=== PATIENT | male | born 1975 | race Caucasian/White ===

== ENCOUNTER 2019-02-20 06:04 | Inpatient (IN) | payer OTHER, SELFPAY ==
[2019-02-17 10:34] VITALS: BMI 30.7
[2019-02-20] VITALS (18 sets, daily range): BP systolic 101–136; BP diastolic 56–113; PULSE 71–102; RESP 1–18; TEMP 36.3–36.9; O2SAT 87–100; BMI 30.7
--- NOTE | 2019-02-20 | DI.RAD.S_ITS ---
PROCEDURE: XR LUMBAR SPINE 2-3V INDICATIONS: L4-5, L5-S1 TLIF TECHNIQUE: 2 intraoperative fluoroscopic views of the lumbar spine were acquired. COMPARISON: None. FINDINGS: Intraoperative fluoroscopic images of lower lumbar spine shows transpedicular fusion at L4-5 and L5-S1 levels with intervertebral spacer placement at these levels. IMPRESSION: Fluoroscopy guidance was provided intraoperatively for transpedicular fusion at L4-S1 levels. Dictated by: Dhruv Gallegos M.D. on 02/20/2019 at 13:46 Approved by: Dhruv Gallegos M.D. on 02/20/2019 at 13:46
--- NOTE | 2019-02-20 06:48 | SUR.PREOP ---
+pp x2, danielito feet cold, pale pink. Pt denied tingling or numbness to danielito feet
[2019-02-20] MEDS: LACTATED RINGERS 1,000 ML 42 ML IV ×2 (06:59→09:45)
--- NOTE | 2019-02-20 07:27 | PC.NURSE ---
Day shift: Pt is not on AC unit at this time.
--- NOTE | 2019-02-20 07:41 | PM.PREOP ---
Pre-operative Note Interval Note History & Physical reviewed/Exam performed by Physician: Yes Changes to H&P: No
[2019-02-20] MEDS: CEFAZOLIN 2 GM/100 ML FROZ.PIGGY IV ×3 (07:45→23:55)
--- NOTE | 2019-02-20 08:27 | SUR.OPER ---
Prone on spine table, head in foam head support, padded chest and pelvic supports, gel pad at knees, lower legs supported by pillows; nipples, genitalia and toes free of pressure, arms secured on foam padded arm boards at <90 degrees abduction. Tape over blanket at thigh secured to table.
[2019-02-20] MEDS: BUPIVACAINE LIPOSOME 266 MG/20 ML VIAL INJ (08:34)
[2019-02-20] MEDS: BUPIVACAINE 0.25% W/ EPI 30 ML VIAL INJ (08:35)
--- NOTE | 2019-02-20 11:31 | CM.DANOTE ---
Discharge Planning/Care Management DCP: assessment: initiated: Case received and discussed in Team Rounds. Pt is currently in surgery. EMR reviewed. Documentation reveals that pt is a 43 year old male who admitted early this morning for a planned spinal surgery. Surgeon: Dr. Herr. Admission status: in review currently: per JUSTEN [place] Payer: Active [facility]. PT and OT will be ordered. White Board in pt's room 227 is updated with DCP team contact information. P: DCP team to follow up tomorrow with pt to continue the DCP assessment process. CM Discharge Assessment Start: 02/20/19 11:29 Freq: Status: Active Protocol: Document 02/20/19 11:30 ITV (Rec: 02/20/19 11:31 ITV [id number]) Discharge Planning Assessment Advance Directives? No History Provided By Medical Record Prior Living Arrangements Mobile home Household Members spouse family children Whiteboard Updated in Patient Room with Yes name and ext. # of Rum Processing Operator Review Status In Process Pre-Anesthesia Assessment Start: 02/17/19 09:58 Freq: Status: Active Protocol: Document 02/17/19 10:34 CAB (Rec: 02/17/19 10:59 CAB [id number]) Pre-Anesthesia Assessment Patient Also Known As Cuellar (AKA) Patient Information Reviewed Via Phone Assessment Assessment Completed With Patient Primary Care Provider Dr. Veloz Seen Specialist in Last 12 Months Yes Specialist Seen Orthopedist Primary Language French Research Chemist Required No Height 175.26 cm Weight 94.347 kg Body Mass Index (BMI) 30.7 Hearing Ability Normal Visual Impairment No Limitations Visual Assist None Dentition Type Teeth, Natural Present Barriers to Learning None Other Aids No Hx Anesthesia Reactions No Hx Family Anesthesia Reaction No Hx Malignant Hyperthermia No Hx Blood Transfusions No Anesthesia Review Requested No Mangle Tender Cloth No alcohol intake current alcohol intake frequency 0-2 drinks per day Smoking Status Never smoker Substance Use Type does not use Pain Present Pain Reported Musculoskeletal Symptoms Abnormal Gait Back Pain Difficulty Walking Joint Pain Muscle Weakness Radiating Pain into Limb History of Falling (Recent or History of Yes ) Patient is completely paralyzed or No completely immobile Mental Status Oriented to own ability Is patient on oxygen? No Does patient have MIKE/SOB No Hx Sleep Apnea No Currently Taking a Beta Nadeem No Can You Climb a Flight of Stairs Without Yes SOB Hx Chest Pain No Hx SOB No Hx Syncope or Dizziness No Anti-Coagulant Therapy No Has a Yarn Winder No Cardiac Testing No Hx Pacemaker/ICD No Pacemaker Rep Required? No Cardiac Clearance Received Not Applicable Diet Type At Home Regular dysphagia No Genitourinary Symptoms Difficulty Urinating Bladder Pattern Urgency Urinary Catheter Present No Hx Urinary Self Catheterization No Comment Pt feels r/t fall down into a boat bilge 7-10 feet 10/12/18 Diabetes No Hx Drug Resistant Organism No Presence of External or Internal Medical No Devices Have you traveled outside the [facility] in the last 30 days? Marital Status Lives With spouse family children Prior Living Arrangements Mobile home Number of Floors (Floors) One Floor Support System Family Spouse Does the Patient Have Assistance After Yes Surgery Patient Discharge Plan Description Return Home Comment Pt advised 2-3 day length of stay per surgeon's office Feels Safe in Current Environment Yes Been Physically Hurt or Threatened By a No Person in Current Environment Do you have thoughts of harming yourself None or others? Are you currently considering suicide? No Do you have a plan to hurt yourself or No Plan others? Do You Have Any Spiritual Beliefs That No May Affect Your HC Choices? Do You Have Any Cultural Practices That No May Affect Your HC Choices? Spiritual Referral None Comment Jew Who Can We Speak to About Patient's Care Family, friends Identifying Code for Release of Patient Declines to issue Information Health Care Proxy/Next of Kin Kimmy () Health Care Proxy Emergency Contact Name Kimmy () Emergency Contact Advance Directives? No: Declines further information Power of Director Of Business Continuity No PAC Instructions Durable medical equipment Medications to take/avoid Nasal antibiotic No ETOH/petroleum product on skin DOS NPO Pre-surgical wash Sturdy shoes/comfortable clothes Do not bring valuables and remove jewelry
--- NOTE | 2019-02-20 11:53 | P.OP_ITS ---
Operative Date/Time/Diagnoses Date of procedure: 02/20/19 Time of procedure: 07:49 Pre-op diagnosis: 1. L4-5, L5-S1 spondylolisthesis 2. L5-S1 spondylolysis 3. L4-5, L5-S1 spinal stenosis Post-op diagnosis: same Procedure & Clinicians Procedure: 1. L4-5, L5-S1 Postero-lateral and posterior interbody fusion 2. L4-5, L5-S1 interbody cage placement. 3. L4-5, L5-S1 decompressive laminectomy with bilateral facetecomies 4. L4-5, L5-S1 Posterior segmental instrumentation 5. [place] of bone marrow from iliac crest 6. Utilization of microsurgical technique and operating microscope Same procedure as scheduled: Yes Indications: Patient has been having chronic back pain and worsening lumbar radiculopathy. Patient sustained a work injury and did not improve after multiple conservative management with worsening pain weakness and numbness in her lower extremity. Patient has been having difficulty performing activity of daily living. After d iscussing risks benefits of treatment options, patient elected proceed with surgery. Surgeon: Joe Herr Intelligence Clerk: Yoli Cano Click Yes if Unassisted: No Anesthesia Type: General Operative Notes Closure Type: primary Specimen(s): none sent Prosthetic devices, grafts, tissues, transplants, or devices: Globus revolve screws, Rise cages Applied: catheter Estimated Blood Loss (mL): 100 Blood products transfused: none Procedure in detail: Patient was seen in the preoperative area. Risks and benefits of the surgery was discussed with the patient. Informed consent was obtained from the patient and placed in the chart. Surgical site was marked. Patient was taken to the operative room. General anesthesia was administered. Prophylactic antibiotic was given to the patient less than 30 min before the incision was made. Patient was placed into a prone position on the Freddie table. Patient's back was then prepped and draped in the sterile fashion. Time- out was performed at this time. Using AP and lateral C-arm imaging the interval between L4-S1 was identified and marked on patient's back. A 2 inch incision 2 in from midline was made on the left side first. The fascia was incised in line with skin incision. Globus MARS retractors was placed inside the incision and docked onto the L4 and L5 lamina. Using microsurgical technique and operating microscope, a L4 and L5 laminectomy and L4-5 L5-S1 facetectomy was performed using a Kerrison rongeur. During the process of decompression more than 75% of bilateral L4-5 L5-S1 facets were removed in order to decompress the spinal canal and the lateral recess. The L4- 5 L5-S1 level was grossly unstable after the decompression was completed and requiring the fusion procedure. The disc space at L4-5, L5-S1 was identified. And a total diskectomy was performed at L4-5, L5-S1 level. The endplates were decorticated using a rasp and shaver. The total diskectomy and decortication was performed at L4-5, L5-S1 level in order to to accomplish a L4-5, L5-S1 fusion. The local bone from the laminectomy and facetectomy was saved for local bone grafting. After the total diskectomy and decortication was completed, Bio4 bone graft material was combined with local bone that was harvested earlier. At this time, a separate skin is incision was made over the iliac crest. A Jamshidi needle was inserted into the iliac crest through a separate skin incision. 5 cc of bone marrow aspiration was obtained through the separate skin incision using a Jamshidi needle from the iliac crest. The bone marrow aspiration was combined with local bone and the Bio4 bone grafting material. The bone grafting material was placed into the L4-5, L5-S1 interbody space along with two cages, one expandable cage at each level. The cages were expanded to their maximum height using the torque limiting screwdriver. At this time a mirror image incision was made on the right side. The fascia was incised in line with the skin incision. Globus MARS retractor was inserted and docked onto the L4-5, L5-S1 posterolateral gutter. Using the power drill, posterior-lateral decortication was performed at L4-5, L5-S1 level until bleeding cortical bone was identified. The remaining bone grafting material was placed into the L4-5 L5-S1 posterior lateral gutter he order to accomplish posterolateral fusion at the L4-5 L5-S1 levels. Using the double C-arm technique, pedicle screws were placed into the L4, L5, S1 pedicles bilaterally. This was done by placing the Jamshidi needle into the pedicles, then placing the guidewires over the Jamshidi needle, and finally placing the cannulated screws over the guidewires bilaterally. After the pedicle screws were placed, 2 titanium rods was locked into the heads of the pedicle screws using locking caps and torque limiting screwdriver. Total 6 pedicles screws were placed. After all the hardware was placed, and confirmed with AP and lateral C-arm imaging, the wound was then irrigated with sterile normal saline and packed with Ray-Jean gauze for 3 min to accomplish hemostasis. After the gauze was removed the deep fascia was closed with #1 Vicryl suture. The subcutaneous layer was closed with 2-0 Vicryl. The skin was closed with skin flory. Patient tolerated the procedure well. There were no complications. Complications: none Condition: stable Disposition: PACU Plan for aftercare: Admit to inpatient hospital
--- NOTE | 2019-02-20 13:30 | PC.NURSE ---
Day shift: Pt on unit at approx 1315. VS WNL. 4L NC high 90's. HR 100. BP 134/83. Pt very tired. Denies any pain. CMS ok. Dressing is CDI. SCD's iun place. PPP. Spouse in room for support. Bed alarm on. Garcia cath patent and draining to gravity clear yellow.
[2019-02-20] MEDS: SODIUM CHLORIDE 0.9% 1,000 ML 100 ML IV (14:20)
[2019-02-20] MEDS: hydrOXYzine pamoate 25 MG CAPSULE PO ×2 (14:21→19:40)
[2019-02-20] MEDS: GABAPENTIN 300 MG CAPSULE PO ×2 (15:59→20:41)
--- NOTE | 2019-02-20 16:02 | PT.IIE ---
Current Diagnoses Spondylolysis, lumbar region (02/20/19) Spondylolisthesis, lumbar region (02/20/19) Spinal stenosis, lumbar region without neurogenic claudication (02/20/19) Surgery Performed Operation Date: 02/20/19 07:45 Actual Procedures p l4-5, l5-s1 tlif with posterior instrumentation - Joe Herr MD Surgical History (Last Updated 02/17/19 @ 10:44 by Beulah uK, RN) H/O: vasectomy (Acute ~2009) Hx of arthroscopy of left knee (Acute ~1998) Hx of tonsillectomy (Acute) S/P emergency tracheotomy for assistance in breathing (Acute ~1976) Medical History (Last Updated 02/17/19 @ 10:44 by Beulah Ku RN) Anxiety about health (Acute) Arthritis (Acute) Depression (Acute) Hemorrhoid (Acute) Sciatic leg pain (Acute) Physical Therapy Inpatient Evaluation/Re-Eval M1 PT/OT-IP Prior Functional Status Start: 02/20/19 17:29 Freq: NEEDED Status: Active Protocol: Document 02/20/19 16:02 AB (Rec: 02/20/19 17:43 AB [id number]) Medical Review Prior Functional Status Medical History Reviewed Yes Communication able to make needs known Mobility and Gait pt stated that he is independent with all mobilities and ambulation without AD Social History Household Members spouse family children Number of Floors (Floors) One Floor Number of Stairs To Enter/Railing? 3 steps to enter with bilateral rails Home Environment Standard Height Toilet Walk in Shower Built-In Shower Seat Home Equipment Front Wheel Walker Additional Social History Comment pt lives with spouse, mother- in-law and her daughter. pt stated that he has trekking /hiking poles that he uses sometimes. M2 PT-IP Current Condition Start: 02/20/19 17:29 Freq: NEEDED Status: Active Protocol: Document 02/20/19 16:02 AB (Rec: 02/20/19 17:43 AB [id number]) Physical Therapy Current Condition Current Condition Evaluation Date 02/20/19 Treatment Diagnosis L4-S1 fusion/lami; difficulty in walking Onset Date 02/20/19 Precautions Lumbar Precautions Log Roll No Twisting Limit Bending Lifting Restriction of 10 lbs Gait Belt above Incisional Area M3 PT-IP Subjective Start: 02/20/19 17:29 Freq: NEEDED Status: Active Protocol: Document 02/20/19 16:02 AB (Rec: 02/20/19 17:43 AB [id number]) Subjective Physical Therapy Visit Type Type Initial Evaluation Visit Start Time 16:02 Visit Stop Time 16:57 Total Visit Minutes 55 Number of SPINDLE CARVER Visits 0 Physical Therapy Visit Comments Patient Comments pt agreeable to do PT; seems a little drowsy but answers question appropriately Therapy Pain Assessment Pain When Pain Assessed At Rest Pain Present Pain Present Pain Reported Location Low Back, lt hip/leg Intensity 7 Scale Used Numeric (1 - 10) Pain Management Techniques Re-positioning Timing of Activity with Medications M4 PT-IP Mobility and Gait Start: 02/20/19 17:29 Freq: NEEDED Status: Active Protocol: Document 02/20/19 16:02 AB (Rec: 02/20/19 17:43 AB [id number]) PT-Bed Mobility Assessment Rolling Type of Rolling Log Rolling Level of Assist Minimal Assistance Supine to Sit Supine to Sit Minimal Assistance 1 Person Assistance Sit to Supine Sit to Supine Minimal Assistance 1 Person Assistance PT-Transfer Assessment Sit to and From Stand Sit to and from Stand Minimal Assistance 1 Person Assistance Use of Upper Extremities Equipment Transfer Assistive Device Gait Belt Front Wheeled Walker Orthotic/Prosthetic Devices or Brace: No Comments Mobility Comments pt required 2 attempts for sit to stand. unable to complete with first attempt. pt educated on techniques with sit to stand and completed on 2nd attempt requiring min A and cues on EOB Gait Assessment Gait Gait Assistance Required: Minimum Assistance Distance (Feet) 10 Able to Maintain Weight Bearing Status Yes During Gait Assistive Devices Assistive Device Gait Belt Front Wheeled Walker Orthotic/Prosthetic Devices or Brace: No Gait Deviations General Gait Pattern Antalgic Decreased Stride Length Decreased Feet Clearance Factors Limiting Gait Function Factors Limiting Gait Function Decreased Activity Tolerance Decreased Sensation Decreased Strength Limited Range of Motion Pain Poor Balance Poor Safety Awareness Comments Gait Comments BP in supine: 137/85. pt sat on EOB. and was able to sit on EOB SBA. BP: 131/85 . pt completed sit to stand min A and cues on 2nd attempt. able to stand using FWW min A for steadiness. pt ambulated in room ~ 10 ft min A and cues. c/o dizziness/lightheadedness during ambulation. instructed pt to go sit on EOB. BP checked: 117/77. informed nurse regarding pt's bP and syptoms. pt completed sit to supine min A and cues. required max A for repositioning in bed. call light and table placed within reach. PT-Balance Assessment Sitting Balance and Reactions Static Sitting Balance Ability Good Dynamic Sitting Balance Ability Good Standing Balance and Reactions Static Standing Balance Ability Fair Dynamic Standing Balance Ability Fair Device Used FWW M5 PT-IP Objective Assessments Start: 02/20/19 17:29 Freq: NEEDED Status: Active Protocol: Document 02/20/19 16:02 AB (Rec: 02/20/19 17:43 AB [id number]) Orientation Orientation/Cognition Level of Alertness Alert Orientation Name Place Situation Language Function Ability No Deficits Noted Safety Awareness Decreased Safety Awareness Gross Range of Motion Lower Extremity ROM Assessment Within Functional Limits Strength Lower Extremity Strength Assessment Left Impaired Knee 3+/5 Coordination Assessment Gross Coordination Gross Coordination WNL Sensation Assessment Sensation Gross Sensation Left UE Impaired Left LE Impaired Sensation Description Numbness Comments Sensation Comments pt c/o numbness on L fingers and L LE from the knee down to the foot. assessed light touch sensation and pt was able to determine location and laterality on B sides. pt stated that LUE/LE sensation is ~ 90% Muscle Tone Muscle Tone WNL Yes M6 PT-IP Treatment Start: 02/20/19 17:29 Freq: NEEDED Status: Active Protocol: Document 02/20/19 16:02 AB (Rec: 02/20/19 17:43 AB [id number]) Physical Therapy Treatment Education Education Provided Precautions Weight Bearing Status Post-Op Packet Safety M7 PT-IP Assessment and Plan Start: 02/20/19 17:29 Freq: NEEDED Status: Active Protocol: Document 02/20/19 16:02 AB (Rec: 02/20/19 17:43 AB [id number]) PT Summary Assessment and Plan Potential Rehabilitation Potential Good Status of Condition at Evaluation Evolving Summary Impairments Pain ROM Strength Balance Coordination Sensation Tone Cognition Bed Mobility Transfers Gait Activity Tolerance Assessment Summary pt required min A with mobility but unable to tolerate much due to decrease in BP with c/o dizziness/ lightheadedness and cold sweats. will continue to monitor progress. will conduct caregiver training when appropriate and also complete stair climbing prior to d/c. Goals Bed Mobility Goal Standby Assistance Transfer Goal Standby Assistance Front Wheeled Walker Gait Goal Standby Assistance Front Wheel Walker Gait Distance 200 Other Goals u/down 3 steps B rails SBA Days to Meet Goals 5 Frequency of Treatment Frequency Of Treatment Twice a Day Treatment Plan Physical Therapy Treatment Plan Bed Mobility Training Transfer Training Gait Training Therapeutic Exercise Balance Retraining Post Op Education Discharge Planning Hot or Cold Pack Neuromuscular Re-ed Coordination Retraining Manual Therapy Other Recommendations and Next Treatment ambulation, caregiver training Focus , stair climbing training Recommendations To Nursing Amount of Assist Needed 1 Person Assist Discharge Recommendations PT Discharge Recommendations Home with Assistance
--- NOTE | 2019-02-20 16:22 | PC.NURSE ---
Addendum entered by Jo Ann Mcleod R.N. 02/20/19 22:11: No change in pt's neurovascular status this shift. Observes log rolling technique well. Repositioned onto right side with ice to back. BL foot pumps in place. Addendum entered by Jo Ann Mcleod R.N. 02/20/19 16:54: Pt mobilized by P.T. out of bed. Does c/o dizziness and becomes diaphoretic. Returned to sitting on edge of bed by P.T. and BP 117/77 with HR 103. Does c/o pain 6/10 to back. Administered oxycodone after discussion with pt. Now back to bed and BL foot pumps replaced. Dressing to back is intact. Steristrip proximal lateral aspect of dressing with moderate amount shadowy drainage. This was outlined. Clear breath sounds throughout all lung harevy. Pt does state numbness to LLE and left hand are new postoperatively. Will continue to monitor. Original Note: Pt lying quietly in bed drowsy, but provides appropriate verbal responses to questions. Admits to back pain 5.5/10, but does state does not want to take too many pain meds. Administered scheduled meds as per emar. Pt informs this procedure writer will alert procedure writer when desiring/needing additional pain meds. Does c/o numbness to left thumb, 1st and 2nd tips of fingers as well as left palm of hand. Hands are equally warm to touch with left sales support technician slightly less than right. Pt reports this is a new finding postop. Strong left radial pulse. Admits to left leg numbness, but is able to feel this procedure writer's cold hands on foot/ankle/shetty. Pedal pulses are present with doppler x 2. P.T. in to assess and mobilize pt. Room air 95%.
[2019-02-20] MEDS: OXYCODONE IR 5 MG TABLET 10 MG PO ×2 (16:51→20:40)
[2019-02-20] MEDS: ACETAMINOPHEN 325 MG TABLET 650 MG PO (19:40)
[2019-02-20] MEDS: SENNOSIDES 8.6 MG TABLET 17.2 MG PO (20:40)
[2019-02-20] MEDS: DOCUSATE 100 MG CAPSULE PO (20:41)
[2019-02-20] MEDS: SERTRALINE 50 MG TABLET 100 MG PO (20:41)
[2019-02-21 00:15] VITALS: BP 110/72; PULSE 87; RESP 16; TEMP 36.3; O2SAT 93
[2019-02-21] MEDS: OXYCODONE IR 5 MG TABLET 10 MG PO ×4 (00:56→16:09)
[2019-02-21] MEDS: SODIUM CHLORIDE 0.9% 1,000 ML 100 ML IV (00:57)
[2019-02-21 04:15] VITALS: BP 120/71; PULSE 89; RESP 16; TEMP 36.7; O2SAT 94
[2019-02-21] MEDS: hydrOXYzine pamoate 25 MG CAPSULE PO (04:53)
[2019-02-21 05:33] LABS: Hematocrit 38.4 % (41-53); Hemoglobin 12.8 g/dL (13.5-17.5)
--- NOTE | 2019-02-21 09:10 | PT.IPTN ---
Current Diagnoses Spondylolysis, lumbar region (02/20/19) Spondylolisthesis, lumbar region (02/20/19) Spinal stenosis, lumbar region without neurogenic claudication (02/20/19) Surgery Performed Operation Date: 02/20/19 07:45 Actual Procedures p l4-5, l5-s1 tlif with posterior instrumentation - Joe Herr MD Physical Therapy Treatment Note M2 PT-IP Current Condition Start: 02/20/19 17:29 Freq: NEEDED Status: Active Protocol: Document 02/20/19 16:02 AB (Rec: 02/20/19 17:43 AB [id number]) Physical Therapy Current Condition Current Condition Evaluation Date 02/20/19 Treatment Diagnosis L4-S1 fusion/lami; difficulty in walking Onset Date 02/20/19 Precautions Lumbar Precautions Log Roll No Twisting Limit Bending Lifting Restriction of 10 lbs Gait Belt above Incisional Area M3 PT-IP Subjective Start: 02/20/19 17:29 Freq: NEEDED Status: Active Protocol: Document 02/21/19 09:10 GGD (Rec: 02/21/19 11:57 GGD [id number]) Subjective Physical Therapy Visit Type Type Treatment Note Visit Start Time 08:55 Visit Stop Time 09:10 Total Visit Minutes 15 Number of [employer] DIRECTOR Visits 1 Physical Therapy Visit Comments Patient Comments Pt willing to work with therapy. Therapy Pain Assessment Pain When Pain Assessed At Rest Pain Present Pain Present Pain Reported M4 PT-IP Mobility and Gait Start: 02/20/19 17:29 Freq: NEEDED Status: Active Protocol: Document 02/21/19 09:10 GGD (Rec: 02/21/19 11:57 GGD [id number]) PT-Transfer Assessment Sit to and From Stand Sit to and from Stand Standby Assistance 1 Person Assistance Use of Upper Extremities Equipment Transfer Assistive Device Gait Belt Front Wheeled Walker Orthotic/Prosthetic Devices or Brace: No Transfers Transfer Destination Chair Transfer Ability Level of Assist Contact Guard Assistance Gait Assessment Gait Gait Assistance Required: Standby Assistance Contact Guard Assist Distance (Feet) 200 Able to Maintain Weight Bearing Status Yes During Gait Assistive Devices Assistive Device Gait Belt Front Wheeled Walker Orthotic/Prosthetic Devices or Brace: No Gait Deviations General Gait Pattern Antalgic Decreased Stride Length Decreased Feet Clearance Factors Limiting Gait Function Factors Limiting Gait Function Decreased Activity Tolerance Decreased Sensation Decreased Strength Limited Range of Motion Pain Poor Balance Poor Safety Awareness M5 PT-IP Objective Assessments Start: 02/20/19 17:29 Freq: NEEDED Status: Active Protocol: Document 02/20/19 16:02 AB (Rec: 02/20/19 17:43 AB [id number]) Orientation Orientation/Cognition Level of Alertness Alert Orientation Name Place Situation Language Function Ability No Deficits Noted Safety Awareness Decreased Safety Awareness Gross Range of Motion Lower Extremity ROM Assessment Within Functional Limits Strength Lower Extremity Strength Assessment Left Impaired Knee 3+/5 Coordination Assessment Gross Coordination Gross Coordination WNL Sensation Assessment Sensation Gross Sensation Left UE Impaired Left LE Impaired Sensation Description Numbness Comments Sensation Comments pt c/o numbness on L fingers and L LE from the knee down to the foot. assessed light touch sensation and pt was able to determine location and laterality on B sides. pt stated that LUE/LE sensation is ~ 90% Muscle Tone Muscle Tone WNL Yes M6 PT-IP Treatment Start: 02/20/19 17:29 Freq: NEEDED Status: Active Protocol: Document 02/21/19 09:10 GGD (Rec: 02/21/19 11:57 GGD [id number]) Physical Therapy Treatment Education Education Provided Precautions M7 PT-IP Assessment and Plan Start: 02/20/19 17:29 Freq: NEEDED Status: Active Protocol: Document 02/21/19 09:10 GGD (Rec: 02/21/19 11:57 GGD [id number]) PT Summary Assessment and Plan Summary Assessment Summary Pt improving with mobility. He was able to progress gait distance. HE was stable and steady with gait. Pt safe for home D/C when medically stable . Frequency of Treatment Frequency Of Treatment Twice a Day Treatment Plan Physical Therapy Treatment Plan Bed Mobility Training Transfer Training Gait Training Therapeutic Exercise Balance Retraining Post Op Education Discharge Planning Hot or Cold Pack Neuromuscular Re-ed Coordination Retraining Manual Therapy Recommendations To Nursing Amount of Assist Needed 1 Person Assist Discharge Recommendations PT Discharge Recommendations Home with Assistance
[2019-02-21] MEDS: GABAPENTIN 300 MG CAPSULE PO ×2 (09:32→16:09)
[2019-02-21] MEDS: DOCUSATE 100 MG CAPSULE PO (09:32)
--- NOTE | 2019-02-21 09:55 | OT.IP.EVAL ---
Current Diagnoses Spondylolysis, lumbar region (02/20/19) Spondylolisthesis, lumbar region (02/20/19) Spinal stenosis, lumbar region without neurogenic claudication (02/20/19) Surgery Performed Operation Date: 02/20/19 07:45 Actual Procedures p l4-5, l5-s1 tlif with posterior instrumentation - Joe Herr MD Past Medical History (Last Updated 02/17/19 @ 10:44 by Beulah Ku, RN) Anxiety about health (Acute) Arthritis (Acute) Depression (Acute) Hemorrhoid (Acute) Sciatic leg pain (Acute) Surgical History (Last Updated 02/17/19 @ 10:44 by Beulah Ku RN) H/O: vasectomy (Acute ~2009) Hx of arthroscopy of left knee (Acute ~1998) Hx of tonsillectomy (Acute) S/P emergency tracheotomy for assistance in breathing (Acute ~1976) Occupational Therapy Inpatient Evaluation/Re-Eval M1 PT/OT-IP Prior Functional Status Start: 02/21/19 09:40 Freq: NEEDED Status: Active Protocol: Document 02/21/19 09:40 [facility] (Rec: 02/21/19 09:55 [facility] [id number]) Medical Review Prior Functional Status Medical History Reviewed Yes Diet/Fluid Consistency Regular Thin Liquids Communication able to make needs known Mobility and Gait pt stated that he is independent with all mobilities and ambulation without AD, pt states recently occasional use of trekking pole. Activities of Daily Living and IADL's Pt states needing assist to wash his feet and back from in the shower. Social History Household Members spouse family children Number of Floors (Floors) One Floor Number of Stairs To Enter/Railing? 3 steps to enter with bilateral rails Home Environment Standard Height Toilet Walk in Shower Built-In Shower Seat Home Equipment Front Wheel Walker Additional Social History Comment pt lives with spouse, mother- in-law and her daughter. pt stated that he has trekking /hiking poles that he uses sometimes. M2 OT-IP Current Condition Start: 02/21/19 09:40 Freq: Status: Active Protocol: Document 02/21/19 09:40 [facility] (Rec: 02/21/19 09:55 [facility] [id number]) Occupational Therapy Current Condition Current Condition Evaluation Date 02/21/19 Treatment Diagnosis L4-5, L5-S1 TLIF post instr, weakness Diagnosis Onset Date 02/20/19 Post Operative Precautions Lumbar Precautions Log Roll No Twisting Limit Bending Lifting Restriction of 10 lbs Gait Belt above Incisional Area Weight Bearing Status Weight Bearing Status Weight Bear as Tolerated M3 OT- IP Subjective and Pain Start: 02/21/19 09:40 Freq: Status: Active Protocol: Document 02/21/19 09:40 [facility] (Rec: 02/21/19 09:55 [facility] [id number]) OT- Subjective Occupational Therapy Visit Type Type Initial Evaluation Visit Start Time 08:20 Visit Stop Time 09:00 Total Visit Minutes 40 Occupational Therapy Visit Comments Patient Comments Pt very cooperative and pleasant and willing to get up . Patient/Caregiver Goals Pt states to go home when medically ready. OT Pain Assessment Pain When Pain Assessed During Mobility Pain Present Pain Present Pain Reported Location Low Back, lt hip/leg Intensity 5 Scale Used Numeric (1 - 10) M4 OT- IP ADL's Start: 02/21/19 09:40 Freq: Status: Active Protocol: Document 02/21/19 09:40 [facility] (Rec: 02/21/19 09:55 [facility] [id number]) OT CMP-Qdrf-Gbiqwsd General Evaluation Self-Feeding Ability Independent OT ADL-Grooming General Evaluation Grooming Ability Standby Assistance Areas Needing Assistance Retrieving/Set-up of Grooming Items Comments OT Grooming Comments After set-up pt able to do all grooming needs, good follow through of body mechanics and back precautions to spit into the sink. OT ADL-Oral Care General Eval Oral Care Ability Independent OT ADL-Dressing General Eval Lower Body Dressing Ability Maximum Assistance Comments OT Dressing Comments After education of LB dressing pt able to nikolas/doff socks, sock aid issued. Pt states family to assist at home. Pt states wears socks, suggested to take none skid socks home initially as pt has hardwood floors . OT ADL-Toileting Comments OT Toileting Comments Pt sat on the toilet and able to determine able to lean and wipe or could just stand to wipe. Pt considering getting BSC however pt able to get up with equally putting weight through FWW handles with BUE to help to sleeping car conductor addition , pt has a counter on right side at home. OT ADL-Bathing Comments OT Bathing Comments Pt states will shower tomorrow . Pt has built in seat at home . M5 OT- IP IADL's Start: 02/21/19 09:40 Freq: Status: Active Protocol: Document 02/21/19 09:40 [facility] (Rec: 02/21/19 09:55 [facility] [id number]) OT-Instrumental Activities of Daily Living Home Safety Awareness Awareness of Need for Assistance at Home Good Awareness Ability to Problem Solve Emergency Able to Problem Solve Situations Home Safety Comments Recoommend initially while on pain medication to have double check while he is taking medications and paying bills. Medication Management Medication Management No Deficits Identified Money Management Money Management No Deficits Identified Meal Preparation Meal Preparation Caregiver Provides Assist Cloth Grader Cloth Grader Caregiver Provides Assist M6 OT- IP Functional Cognition Start: 02/21/19 09:40 Freq: Status: Active Protocol: Document 02/21/19 09:40 [facility] (Rec: 02/21/19 09:55 [facility] [id number]) Cognitive Factors Limiting Selfcare Function Cognitive Ability Level of Alertness Alert Patient Orientation Name Age Birthday Month Date Year Day of Week Place Situation Attention Span Ability Capable of Focused Attention Capable of Sustained Attention Ability to Follow Commands Able to Follow Multi-Step Commands Memory Description No Deficits Noted Safety Awareness No Deficits Noted Problem Solving Ability No deficits Noted Cognitive Comments Cognitive Assessment Comments Pt appears at baseline today for cognition. OT- Vision and Hearing OT- Hearing Assessment OT- Hearing Assessment WFL OT- Vision Assessment Visual Acuity WFL M7 OT- IP Mobility and Balance Start: 02/21/19 09:40 Freq: Status: Active Protocol: Document 02/21/19 09:40 [facility] (Rec: 02/21/19 09:55 [facility] [id number]) OT- Bed Mobility Assessment Rolling Type of Rolling Roll to Right Supine to Sit Supine to Sit Assist Contact Guard Assistance Scooting Scooting to Edge of Bed Standby Assistance Scooting Up and Down in Bed Standby Assistance OT-Transfer Assessment Sit to and From Stand Sit to and from Stand Standby Assistance Minimal Assistance Transfers Transfer Ability Contact Guard Assistance Minimal Assistance Technique Transfer Destination Bed Chair Toilet Transfer Technique Stand Step Pivot Devices Transfer Assistive Devices Gait Belt Front Wheeled Walker Comments Mobility Comments Suggested for pt to have FWW brought in to help adjust proper height. Pt just needing CGA to help ease to lower surfaces, otherwise CGA to SBA. Pt able to show good safety after educations for FWW safety and how to stand and sit via keeping his back straight. OT- Gait Assessment Comments Gait Ability Comments Pt able to walk in the room with SBA-CGA with FWW. OT- Balance Assessment Sitting Balance and Reactions Static Sitting Balance Ability Normal Dynamic Sitting Balance Ability Normal Standing Balance and Reactions Static Standing Balance Ability Good M8 OT- IP Objective Assessments Start: 02/21/19 09:40 Freq: Status: Active Protocol: Document 02/21/19 09:40 [facility] (Rec: 02/21/19 09:55 [facility] [id number]) OT Gross Range of Motion Upper Extremity Range of Motion Assessment Within Functional Limits M9 OT- IP Assessment and Plan Start: 02/21/19 09:40 Freq: Status: Active Protocol: Document 02/21/19 09:40 [facility] (Rec: 02/21/19 09:55 [facility] [id number]) OT Summary Assessment and Plan Potential Rehabilitation Potential Excellent Analytic Complexity at Evaluation Low Summary OT Impairments Pain Functional Mobility Bathing Progress Towards Goals Progressing Toward Goals Assessment Summary Pt low complexity and main barrier are steps and pain and doing well and having good understanding for all back precautions and safety awareness. Pt has supportive family to assist at home. Discharge home when medically stable. Goals Toileting Goal Standby Assistance Bathing Goal Minimal Assistance Toilet Transfer Goal Standby Assistance Shower Transfer Goal Standby Assistance Patient/Caregiver Education Goal Caregiver Independent Assisting Patient Days to Meet Goals 1 Frequency of Treatment Frequency Of Treatment Once a Day Treatment Plan OT Treatment Plan ADL Training Functional Mobility Patient/Family Education Discharge Planning Other Treatment Recommendations and Next shower Treatment Focus Discharge Recommendations OT Discharge Recommendations Home with Assistance
--- NOTE | 2019-02-21 09:56 | PM.PNPO.1 ---
Subjective Date Patient Seen: 02/21/19 Time Patient Seen: 09:56 Interval history: Postop day 1 status post TLIF with Dr. Herr. Patient's pain is well controlled with Tylenol, Vistaril, gabapentin, and oxycodone. He does complain of some numbness of his left 1st and 2nd digits. He has continuing numbness of left leg but states it is getting better compared to prior to surgery. He lives at home with his . He plans for his to come in this afternoon around 4:00 a.m. to work with therapy as well. Exam Vital Signs (past 8 hours): - 02/21/19 04:15 Temperature 98.0 F Pulse Rate 89 Respiratory Rate 16 Blood Pressure 120/71 Pulse Oximetry 94 Oxygen Delivery Method Room Air Oxygen Flow Rate 1 Narrative Exam Narrative: Patient is sitting at bedside chair in no acute distress. Alert and x3. Dressing on back at CDI. Calves are soft, compressible, nontender bilaterally. Sensation intact light touch except for left anterior thigh, and 1st and 2nd digits of left hand. Pulses are symmetrical. Will actively dorsiflex plantar flex. Benefits Assistant strength strong and equal. Objective Labs Result Diagrams: 02/21/19 04:53 Labs: Laboratory Results - last 24 hr 02/21/19 04:53 Hgb 12.8 L Hct 38.4 L Assessment & Plan Post-op Postoperative Procedures Operation Date: 02/20/19 07:45 Actual Procedures Side Surgeon p l4-5, l5-s1 tlif with posterior instrumentation Joe Herr MD The patient will mobilize with physical therapy today. DC Garcia catheter this morning. Continue current pain control. Patient was provided prescription for Medrol Dosepak for home for left hand numbness. Plan to discharge home today or tomorrow morning once mobilizing safely and voiding without difficulty or assistance. Quality VTE Deep Vein Thrombosis/Pulmonary Embolism Present on Admission: No
[2019-02-21 10:00] VITALS: BP 127/66; PULSE 95; RESP 16; TEMP 36.4; O2SAT 96
[2019-02-21] MEDS: DEXAMETHASONE 10 MG/ML VIAL 8 MG IV (11:50)
--- NOTE | 2019-02-21 15:55 | PC.NURSE ---
Ortho: Doing well this am, po pain meds effective. Did work with PT and they gave pt his instructions. Pt is hoping he will get to go home today. Garcia out, initially not able to void, bladder scanned for 800ml. Pt got to the bathroom, did vd 500mls but still has almost 400mls. in bladder. Discussed fluid intake and pt not being to hard on self by over consuming fluids. Was able to void this afternoon. PVR checked and pt had 160mls. Pt would still like to go home. Report given to oncoming RN. They will complete the paperwork for d/c home.
--- NOTE | 2019-02-21 18:48 | CM.DANOTE ---
Pt discharged to home. Pt requested pain medication before discharge as his drive is 1hr, 10mg oxycodone given. Pt provided with discharge instructions, time allowed to answer questions. Pt reports having providers 25/02 phone numbers for questions post discharge. Follow up appointment confirmed per pt. Dressing to surgical site at back changed. Site CD&I, pt denied tenderness at site. Education provided to leave dressing on until follow up appt, if dressing is removed or site becomes tender/with increased drainage to call provider. Pt stated left palm and fingers continued to be numb, states provider told him it would be a couple of weeks for sensation to return. Pt transportation via private ride with spouse
== END 2019-02-21 16:32 | disposition home or self-care (01) | DRG 455 ==
PROVIDERS: Admitting Provider Orthopaedic Surgery Orthopaedic Surgery of the Spine; PCP Family Medicine; Visit Provider Orthopaedic Surgery Orthopaedic Surgery of the Spine
PROC: 0SG00AJ Fusion of Lumbar Vertebral Joint with Interbody Fusion Device, Posterior Approach, Anterior Column, Open Approach (ICD-10-PCS; principal; 2019-02-20 07:45)
DX: M48.061 Spinal stenosis, lumbar region without neurogenic claudication (principal); M43.16 Spondylolisthesis, lumbar region; M43.06 Spondylolysis, lumbar region; W17.89XA Other fall from one level to another, initial encounter; Y99.0 Civilian activity done for income or pay
CPT/HCPCS: 36415; 72100; 76000; 85014; 85018; 97116; 97162; 97165; 97530; 97535; C1776; C9290; J0330; J0690; J1100; J1170; J2250; J2405; J2704; J3010

== ENCOUNTER → 2020-06-03 11:42 | Outpatient (CLI) | payer OTHER, SELFPAY ==
[2019-02-20 13:52] VITALS: BMI 30.7
--- NOTE | 2020-06-03 | DI.CT.S_ITS ---
PROCEDURE: CT LUMBAR SPINE WO CON INDICATIONS: SPINAL STENOSIS, LUMBAR REGION WITHOUT NEUROGENIC CLAUDICATI TECHNIQUE: Noncontrast 3 mm thick sections acquired from the T12 level to the sacrum. Sagittal and coronal reformats were constructed. For radiation dose reduction, the following was used: automated exposure control. COMPARISON: [facility] [place], MR, MR LUMBAR SPINE WITHOUT CONTRAST, 10/22/2018, 14:56. [facility] [place], MR, MR LUMBAR SPINE WITHOUT CONTRAST, 05/11/2020, 13:59. [facility] [place], CR, XR LUMBAR SPINE 2 OR 3 VIEWS, 08/20/2019, 11:14. [facility] [place], CR, XR LUMBAR SPINE 2 OR 3 VIEWS, 07/22/2019, 11:15. FINDINGS: Image quality: Excellent. Bones: Postsurgical changes compatible with L4-S1 TLIF. Orthopedic hardware is intact. No lucencies at the bone-hardware interface. There trace L4-L5 retrolisthesis.. No acute vertebral body compression fractures. No suspicious lytic or blastic bony lesions. Central spinal caliber is of normal overall caliber. No pars defects. T12-L1: Normal appearance L1-L2: Normal appearance L2-L3: Normal appearance L3-L4: Disc height is normal. Mild, diffuse disc bulge. Mild bilateral facet hypertrophy. No central stenosis. Mild bilateral neural foraminal narrowing. No neural compression. L4-L5: Status post fusion. Mild, diffuse disc bulge. Mild bilateral facet hypertrophy. No central stenosis. Moderate right and mild left neural foraminal narrowing. No neural compression. L5-S1: Status post fusion. Mild bilateral facet hypertrophy. No central stenosis. No neural foraminal narrowing. No neural compression. Soft tissues: No retroperitoneal masses or hematomas. Visualized aorta is normal in caliber. IMPRESSION: 1. Status post L4-S1 TLIF. 2. Multilevel degenerative disease. 3. Multilevel facet arthropathy. 4. No central stenosis. 5. Moderate right and mild left L4-L5 neural foraminal narrowing. Mild bilateral L3-L4 neural foraminal narrowing. 6. No neural compression. Dictated by: Jordyn Kaur MD, PhD on 06/03/2020 at 13:54 Approved by: Jordyn Kaur MD, PhD on 06/03/2020 at 14:03
== END ==
PROVIDERS: Referring Provider Orthopaedic Surgery Orthopaedic Surgery of the Spine; Visit Provider Orthopaedic Surgery Orthopaedic Surgery of the Spine
DX: M48.061 Spinal stenosis, lumbar region without neurogenic claudication (principal); M51.36 Other intervertebral disc degeneration, lumbar region; M47.816 Spondylosis without myelopathy or radiculopathy, lumbar region; M47.817 Spondylosis without myelopathy or radiculopathy, lumbosacral region; Z98.1 Arthrodesis status
CPT/HCPCS: 72131

== ENCOUNTER → 2022-12-05 13:39 | Outpatient (CLI) | payer OTHER, SELFPAY ==
[2019-02-20 13:52] VITALS: BMI 30.7
--- NOTE | 2022-12-05 | DI.CT.S_ITS ---
PROCEDURE: CT ANGIO HEAD INDICATIONS: Family history of brain aneurysm TECHNIQUE: Precontrast 4.5 mm thick angled axial sections acquired from the foramen magnum to the vertex. After the administration of intravenous contrast, 1 mm thick sections acquired through the [place] of [place]. Postcontrast 4.5 mm thick sections then re-acquired from the foramen magnum to the vertex. 10 mm thick aawivmx-feayudvdv-nxemsommkd (MIP) reformats were acquired of the central intracranial vasculature. For radiation dose reduction, the following was used: automated exposure control, adjustment of mA and/or kV according to patient size. COMPARISON: None. FINDINGS: Image quality: Mild streak artifact can be seen through the skull base. Anterior circulation: Intracranial internal carotid arteries are normal in size and flow. The flow within the paired anterior cerebral arteries is normal and symmetric. The flow within the middle cerebral arteries is normal and symmetric. The anterior communicating artery is seen. No aneurysms are seen. Posterior circulation: Visualized portions of the vertebral arteries demonstrate normal caliber, and join to form a normal appearing basilar artery. Flow within the posterior cerebral arteries is normal and symmetric. No aneurysms are seen. CSF spaces: Ventricles are normal in size and shape. Basal cisterns are patent. No extra-axial fluid collections. Brain: No midline shift. No intracranial bleeds or masses. Chin-white matter interface appears intact. Skull and face: Calvarium and facial bones appear intact, without suspicious lesions. Sinuses: Visualized sinuses and mastoids are clear. IMPRESSION: No intracranial aneurysm can be seen. Dictated by: Will Dupree M.D. on 12/05/2022 at 14:50 Approved by: Will Dupree M.D. on 12/05/2022 at 14:52
== END ==
PROVIDERS: Referring Provider Family Medicine; Visit Provider Family Medicine
DX: Z01.89 Encounter for other specified special examinations (principal); Z82.49 Family history of ischemic heart disease and other diseases of the circulatory system
CPT/HCPCS: 70496; Q9967

== ENCOUNTER → 2023-10-09 13:08 | Outpatient (CLI) | payer OTHER, SELFPAY ==
[2019-02-20 13:52] VITALS: BMI 30.7
--- NOTE | 2023-10-09 13:10 | DI.MRI.S_ITS ---
PROCEDURE: MR SHOULDER RT WO CON INDICATIONS: Pain in right shoulder TECHNIQUE: Noncontrast oblique coronal T2 fast spin echo with fat saturation, oblique sagittal T1 spin echo and T2 fast spin echo with fat saturation, axial T1 spin echo and T2 fast spin echo with fat saturation through the shoulder. COMPARISON: None. FINDINGS: Image quality: Excellent. Rotator cuff: There is high-grade partial intrasubstance tearing at the posterior supraspinatus/anterior infraspinatus insertion measuring approximately 12 mm in anterior-posterior dimension. The tear approaches and may communicate with the bursal surface. No definite full-thickness tear is seen. Moderate supraspinatus and infraspinatus tendinosis. Teres minor tendon is intact. There is mild subscapularis tendinosis. No significant rotator cuff muscle atrophy is seen. Bones and bursae: No acute trabecular bone injury or fracture. Chronic traction cystic changes are seen in the posterior superior humeral head and the greater tuberosity near the rotator cuff tendon insertions. There is mild degenerative spurring in the glenoid rim without a focal cartilage defect identified. Moderate degenerative changes are seen at the acromioclavicular joint with subchondral edema, subchondral cystic changes, and small marginal osteophytes. There is trace fluid in the subacromial/subdeltoid bursa. No significant glenohumeral effusion is seen. Capsule and soft tissues: Chronic appearing nondisplaced tear is seen at the posterior superior labrum. Proximal biceps long head tendon demonstrates mild tendinosis. There is partial effacement of the normal fat signal in the rotator interval. Anterior band of the inferior glenohumeral ligament is mildly thickened. IMPRESSION: 1. High-grade partial intrasubstance and possibly bursal sided tearing of the posterior supraspinatus tendon and anterior infraspinatus tendon at their distal insertion measuring 12 mm in anterior-posterior dimension. No full-thickness rotator cuff tendon tear is seen. Findings are superimposed on moderate supraspinatus and infraspinatus tendinosis. Mild subscapularis tendinosis. 2. Mild proximal biceps long head tendinosis. 3. Chronic nondisplaced tear of the posterior superior labrum. 4. Moderate acromioclavicular joint osteoarthrosis. 5. Partial effacement of the rotator interval fat and mild thickening of the inferior glenohumeral ligament are nonspecific, but can be seen in the setting of the clinical syndrome of adhesive capsulitis. Approved by: Ankur Sadler M.D. on 10/09/2023 at 16:41
== END ==
LOC: MRI 13:09
PROVIDERS: Referring Provider Family Medicine; Visit Provider Family Medicine
DX: M75.111 Incomplete rotator cuff tear or rupture of right shoulder, not specified as traumatic (principal); M19.011 Primary osteoarthritis, right shoulder; S43.491A Other sprain of right shoulder joint, initial encounter; M25.511 Pain in right shoulder
CPT/HCPCS: 73221

== ENCOUNTER → 2025-01-07 08:12 | Outpatient (CLI) | payer OTHER, SELFPAY ==
[2019-02-20 13:52] VITALS: BMI 30.7
--- NOTE | 2025-01-07 08:14 | DI.MRI.S_ITS ---
PROCEDURE: MR SHOULDER LT WO CON INDICATIONS: LEFT UPPER QUADRANT FIRM MARBLE SIZED LUMP TECHNIQUE: Noncontrast oblique coronal T2 fast spin echo with fat saturation, oblique sagittal T1 spin echo and T2 fast spin echo with fat saturation, axial T1 spin echo and T2 fast spin echo with fat saturation through the shoulder. COMPARISON: none FINDINGS: Image quality: Excellent. Rotator cuff: Mild T2 signal elevation diffusely throughout the supraspinatus and infraspinatus tendons at the humeral insertion sites extending to the musculotendinous junctions, indicating tendinopathy. There is high-grade intrasubstance and bursal surface tearing of the mid supraspinatus tendon at the humeral insertion site. Moderate grade bursal surface tearing of the anterior supraspinatus tendon and posterior supraspinatus tendon at the humeral insertion site. Infraspinatus, subscapularis, and teres minor tendons are intact. No rotator cuff atrophy. Bones and bursae: No bone marrow contusions or fractures. Moderate acromioclavicular joint degeneration. The acromion demonstrates conventional anatomy, without an os acromiale. A small amount of subacromial bursal fluid is present. Capsule and soft tissues: Labrum is within normal limits The long head of the biceps tendon demonstrates normal location and morphology. The rotator interval appears normal, without fibrosis. The coracohumeral ligament is normal in thickness. IMPRESSION: 1. Supraspinatus infraspinatus tendinopathy. Superimposed moderate high-grade tearing of the supraspinatus tendon. 2. Acromioclavicular joint osteoarthritis. 3. Subacromial bursitis. Dictated by: Janee Fuentes M.D. on 01/07/2025 at 10:51 Approved by: Janee Fuentes M.D. on 01/07/2025 at 10:54
--- NOTE | 2025-01-07 08:15 | DI.US.S_ITS ---
PROCEDURE: US SOFT TISSUE ABDOMEN INDICATIONS: LEFT UPPER QUADRANT [employer]M MARBLE SIZED LUMP TECHNIQUE: Real-time scanning was performed of the left upper abdominal wall, with image documentation. COMPARISON: None. FINDINGS: Focused ultrasound examination of left upper abdominal wall at the area of concern just inferior and lateral to the xiphoid process shows a well- circumscribed oval solid-appearing structure measures 1.6 x 2.3 x 0.4 cm in size in subcutaneous soft tissue and is similar in echotexture to adjacent subcutaneous fat. No internal vascularity is seen. IMPRESSION: Finding likely represent a small 1.6 x 2.3 x 0.4 cm lipoma in left upper abdominal wall soft tissue. Dictated by: Dhruv Gallegos M.D. on 01/07/2025 at 14:50 Approved by: Dhruv Gallegos M.D. on 01/07/2025 at 14:52
== END ==
PROVIDERS: Referring Provider Family Medicine; Visit Provider Family Medicine
DX: M75.112 Incomplete rotator cuff tear or rupture of left shoulder, not specified as traumatic (principal); M19.012 Primary osteoarthritis, left shoulder; M25.512 Pain in left shoulder; M75.52 Bursitis of left shoulder; R19.02 Left upper quadrant abdominal swelling, mass and lump
CPT/HCPCS: 73221; 76705